=== PATIENT | female | born 1940 | race Caucasian/White ===

== ENCOUNTER 2016-08-16 04:06 | Inpatient (IN) | payer OTHER ==
[~2016-08-16] VITALS: Ht 170.2 cm; Wt 59.9 kg
[~2016-08-16 04:06] MED LIST: ALBUTEROL1.25 MG/3 INH/SOL; AMIODARONE HYD200 MG PO; ANTIVERT 12.512.5 MG PO; ATORVASTATIN CA10 MG PO; BACTRIM DS 8001 TAB PO; BACTRIM DS TAB1 EACH PO; CIPROFLOXACIN250 M2 PO; COUMADIN 3 MG TA3 MG PO; DAILY MULTIPLE1 TAB PO; DOXYCYCLINE MO100 MG PO; FLAG500 PO; LEVOTHYROXIN0.025 M1 PO; LEVOTHYROXINE0.05 M1 PO; LEVOTHYROXINE25 MCG PO; LIDODERM 5% PAT1 PAT EXT; LISINOPRIL2.5 M1 PO; LISINOPRIL2.5 MG PO; LOTRISONE CREAM15 G1 TOP; MAGNESIUM OXID400 MG PO; MECLIZINE HCL25 M1 PO; MELATONIN 3 MG-1 TAB PO; METOPROLOL TART25 M1 PO; MILK OF MAGNESI30 ML PO; MIRALAX17 GM PO; NEURONTIN100 M1 PO; PANTOPRAZOLE SO40 MG PO; ROXICODONE5 MG PO; SAVAYSA PO; Senokot S PO; TRAMADOL50 MG PO; TRIAMCINOLONE A80 GM TOP; VANCOCIN125 MG PO; VIBRAMYCIN 100100 MG PO; VIBRAMYCIN100 MG PO; VICODIN5-300 PO; VITAMIN C500 M3 PO; VITAMIN C500 M7 PO; VITAMIN D31000 UNI1 PO; WARFARIN SODIUM2 MG PO; WARFARIN SODIUM3 MG PO; XARELTO20 M2 PO; ZITHROMAX250 M2 PO; ZOFRAN4 M1 SL; nebulizer machine
--- NOTE | 2016-08-16 11:54 | Operative Report ---
Operative/Inv Procedure Report Surgery Date: 08/16/16 Name of Procedure: 1 open incision and drainage deep to the fashion with exposure of the extensor and flexor tendon and tendon sheath multiple sites right foot 2 open partial third ray resection right foot 3 intraoperative administration of ankle block anesthesia 4 excisional debridement Pre-Operative Diagnosis: 1 open necrotic wound right foot 2 osteomyelitis right foot Post-Operative Diagnosis: The same Estimated Blood Loss: less than 50ml Surgeon/Clay Artisan: SHANNON ESPINOZA DPM Anesthesia: moderate sedation, block Operative/Procedure Note Note: After obtaining informed consent the patient was brought to the operating room and placed on the operating table in the supine position. The patient isn't securely fastened to the operating table utilizing a safety belt. After administration of IV sedation, 10 mL of 0.5% Marcaine plain was infiltrated about the patient's right ankle. Right foot and ankle and screw prepped and draped in usual aseptic manner. Attention directed right foot were large full- thickness chronic was identified. A 15 blade was utilized sharply revised skin margins. The dissection was then carried down deep to the D fashion with exposure of the extensor and flexor tendon and tendon sheath, both proximally and distally. All necrotic nonviable infected tissue sharply evacuated from the wound bed. It 6 was then carried down to the periosteum overlying the distal third ray which is incised reflected. The third digit was disarticulated and passed from the operative field. Bone specimen was sent for both microbiologic and pathologic inspection. Nipple was then irrigated with 3 L normal sterile saline fissure 50,000 units of bacitracin. Following this the foot was redraped and the surgeon's top gloves were changed clean gloves. Any bleeding vessels identified were cauterized or ligated as encountered. Nipple was then packed with iodoform and 3-0 nylon retention sutures were placed followed by 4 x 4's Kerlix and an Mandeep wrap. The patient was noted to tolerate both procedure and anesthesia well and the patient was transported from the operating room to recovery by sent stable.
--- NOTE | 2016-08-16 13:05 | Cons- Medical ---
KUN LLANES 08/16/16 1305: General Information and HPI Consulting Request Date of Consult: 08/16/16 Requested By: SHANNON ESPINOZA DPM Reason for Consult: medical co-management Source of Information: patient, old records Exam Limitations: no limitations History of Present Illness: Patient is 76 year old female with PMH of paroxysmal a fib on xarelton, non metallic prosthetic mitral valve replacement , s/p colostomy bag after a rectal tear, long-standing and worsening complaint of painful hallux limitus and hammertoes is s/p amputation of second toe of right foot after failing conservative therapy ( show modification, immobilization, NSAID tx etc.) Patient is doing well post excisional debridement and open partial third ray resection right foot. Patient was given ankle block anesthesia prior to procedure so denies any current complain. Has tolerated opiods in the past. Patient has been holding her Xarelto since monday for the procedure. Currently she denies any fever, chill,s difficulty breathing, chest pain, headache, dizziness, abdominal pain, leg pain etc. Her colostomy bag is putting out hard brown stools ( patiet states that it keeps alternating with diarrhea). In recovary room her BP was 187/80, pulse 56, Oxygen saturation 97% on room air. She is afebrile to temp of 97.5. Her Echo from 04/22 was significant for; Left ventricular cavity size normal. Left ventricular wall thickness mildly increased. No obvious regional wall motion abnormalities. Left ventricular ejection fraction is estimated at > 55 %. Right ventricle not well visualized, grossly normal. Bioprosthetic mitral valve. Gradient recorded across the prosthetic mitral valve within the expected range. Echo free space anterior to the right ventricle likely represents a fat pad. No pericardial effusion. Allergies/Medications Allergies: Coded Allergies: Penicillins (Intermediate, VERY BAD YEAST INFECTION ALL OVER THE BODY 10/23/15) prednisone (Intermediate, I LOST ALL MY TEETH FROM IT AND HIVES 10/23/15) tiotropium (From SPIRIVA WITH HANDIHALER) (Intermediate, 08/05/16) cephalexin (UNKNOWN 10/23/15) dextromethorphan (From ROBAFEN DM COUGH-CHEST CONGEST) (Intermediate, DIARRHEA 10/23/15) guaifenesin (From ROBAFEN DM COUGH-CHEST CONGEST) (Intermediate, DIARRHEA ) pineapple (Mild, ORAL IRRITATION 10/23/15) Home Med List: Atorvastatin Calcium (Lipitor) 10 MG TABLET 1 TAB PO DAILY CHOLESTEROL ( Reported) Gabapentin (Neurontin) 100 MG CAPSULE 1 CAP PO TID NEUROPATHY (Reported) Levothyroxine Sodium 25 MCG TABLET 1 TAB PO DAILY AC THYROID (Reported) Lisinopril 2.5 MG TABLET 1 TAB PO DAILY HTN (Reported) Metoprolol Tartrate 25 MG TABLET 12.5 MG PO DAILY HEART (Reported) Rivaroxaban (Xarelto) 20 MG TABLET 1 TAB PO DAILY BLOOD THINNER (Reported) with food Current Medications: Current Medications Sig/Adeline Start time Last Medication Dose Route Stop Time Status Admin Acetaminophen 650 MG Q6P PRN 08/16 1315 AC PO Atorvastatin Calcium 10 MG 1700 08/16 1700 AC PO Docusate Sodium 100 MG DAILY NEEDED PRN 08/16 1315 AC PO Gabapentin 100 MG TID 08/16 1600 AC PO Levothyroxine Sodium 0.025 MG DAILY AC 08/17 0700 AC PO Lisinopril 2.5 MG AT BEDTIME 08/16 2200 AC PO Metoprolol Succinate 12.5 MG DAILY 08/17 1000 AC PO Rivaroxaban 20 MG AT BEDTIME 08/16 2200 AC PO Senna/Docusate Sodium 1 TAB DAILY NEEDED PRN 08/16 1330 CAN PO Senna/Docusate Sodium 2 TAB DAILY NEEDED PRN 08/16 1330 AC PO Vancomycin HCl 1,000 MG DAILY 08/17 1000 AC Dextrose/Water 250 ML IV Vancomycin HCl 1,000 MG ONCE 08/16 0000 NR Sodium Chloride 250 ML IV 08/16 2359 Review of Systems Review of Systems Constitutional: Reports: see HPI. 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 Surgical History Surgical History: COLOSTOMY MITRAL VALVE REPLACEMENT Family History Relations & Conditions If Any: MOTHER Bacterial pneumonia Psychosocial History Services at Home: Home Health Aide Exam & Diagnostic Data Last 24 Hrs of Vital Signs/I&O as above Physical Exam General Appearance: well developed/nourished, no apparent distress, alert, awake , hungry Head: atraumatic, normal appearance Respiratory: normal breath sounds, chest non-tender, no respiratory distress Cardiovascular: regular rate/rhythm Gastrointestinal: normal bowel sounds, soft, non-tender Extremities: peripheral pulses intact left side, unpalpable on right side due to bandage and foot edema, right foot wrapped in bandage after being debrided and cleaned Last 24 Hrs of Labs/Roland: as above Assessment/Plan Assessment/Plan Patient is 76 year old female with PMH of paroxysmal a fib on xarelton, non metallic prosthetic mitral valve replacement , s/p colostomy bag after a rectal tear, long-standing and worsening complaint of painful hallux limitus and hammertoes is s/p amputation of second toe of right foot after failing conservative therapy ( show modification, immobilization, NSAID tx etc.) Patient is doing well post excisional debridement and open partial third ray resection right foot. Patient was given ankle block anesthesia prior to procedure so denies any current complain. Has tolerated opiods in the past. Problem list 1. Paroxsymal Atrial fibrillation 2. Right foot wound s/p amputation of second toe 3. Hypertension 4. pain management Assessment and Plan Patient can be started back on diet post procedure and can be given her metoprolol and lisinopril ordered by Dr. diandra Hugo every shift Ok with restarting xarelto today, if patient has to go to OR on monday, will have to hold it back again from tomorrow Continue atorvastatin, gabapentin CBC and BEP in am to get baseline lab work DVT ppx xarelto, if held tomorrow, will have to start patient on IV heprin for a fib Patient is full code Pain management tylenol for mild pain, percocet for moderate pain and 1 mg IV morphine q8prn for severe pain. Patient has tolerated opiods in the past since the patient is still in recovery room, not able to place any orders yet Consult Acknowledgment - Thank you for your consult request. MARIOLA FINLEY MD 08/16/16 8993: Assessment/Plan Consult Acknowledgment - Thank you for your consult request. Attending Review Statement Attending Statement Attending Statement: examined this patient, discuss w/resident/PA/[employer], agreed w/resident/PA/MANAGER [employer], reviewed EMR data (avail), discussed with nursing, reviewed images, amended to note Attending Assessment/Plan: 76 y/o F with PMH sig for paroxysmal a fib on xarelton, non metallic prosthetic mitral valve replacement , s/p colostomy bag after a rectal tear, now s/p open incision and drainage deep to the fashion with exposure of the extensor and flexor tendon and tendon sheath multiple sites right foot, open partial third ray resection right foot, excisional debridement 2/2 to having open necrotic wound right foot, osteomyelitis right foot failing conservative treatment pod # 0. Medicine consulted for medical management of chronic medical issues. Currently denies any pain. I discussed with Dr. Espinoza and he is okay starting the patient back on her anticoagulation. In the recovery room patient's blood pressure was still running high. Other vital signs were stable. on exam; aox3, nad. cv; s1,s2, rrr. resp; clear abd; soft, nt, bs+ ext; no edema. Right foot wrapped in ULYSSES wrap. No labs today. Assessment and recommendations: 76 y/o F with PMH sig for paroxysmal a fib on xarelton, non metallic prosthetic mitral valve replacement , s/p colostomy bag after a rectal tear, now s/p open incision and drainage deep to the fashion with exposure of the extensor and flexor tendon and tendon sheath multiple sites right foot, open partial third ray resection right foot, excisional debridement 2/2 to having open necrotic wound right foot, osteomyelitis right foot failing conservative treatment pod # 0. Medicine consulted for medical management of chronic medical issues. As I mentioned, blood pressure was running high therefore she received labetalol. We will resume all of her hypertensive regimen. Patient be continued on the rest of her medications. Postop care per Dr. Espinoza. Antibiotics per Dr. Espinoza. I checked the Dr. Espinoza and he is okay resuming the patient back on her full dose anticoagulation tonight for atrial fibrillation. Podiatry plans to take patient to or again in the next 2 or 3 days. Therefore keeping that in mind, we'll keep holding her Xarelto and started on IV heparin. We checked a CBC and other labs in the morning. DVT Px; IV heparin.
[2016-08-16 17:40] VITALS: BP 132/64
[2016-08-16 21:23] LABS: PTT 35 SEC (25-37)
[2016-08-16 22:11] LABS: ABSOLUTE BASOPHIL COUNT 0 /CUMM (0.0-0.2); ABSOLUTE EOSINOPHIL COUNT 0.1 /CUMM (0.0-0.7); ABSOLUTE GRANULOCYTE CT 4.1 /CUMM (1.4-6.5); ABSOLUTE LYMPH COUNT 1.8 /CUMM (1.2-3.4); ABSOLUTE MONOCYTE COUNT 0.8 /CUMM (0.10-0.60); BASOPHIL % 0.5 % (0.0-2.0); EOSINOPHIL % 1.5 % (0-5); GRANULOCYTE % 59.3 % (42.2-75.2); HEMATOCRIT 39.5 % (37-47); MEAN CORPUSCULAR HGB 28.6 PG (27.0-31.0); MEAN CORPUSCULAR HGB CONC 32.6 G/DL (33.0-37.0); MEAN CORPUSCULAR VOLUME 87.7 FL (81.0-99.0); MEAN PLATELET VOLUME 9.4 FL (7.4-10.4); PLATELET COUNT 179 /CUMM (130-400); RBC DISTRIBUTION WIDTH 14.6 % (11.5-14.5); RED BLOOD CELL CT 4.51 /CUMM (4.20-5.40); WHITE BLOOD CELL COUNT 6.8 /CUMM (4.8-10.8)
[2016-08-16 23:00] VITALS: BP 132/64
[2016-08-17 05:25] LABS: PTT 110 SEC (25-37)
[2016-08-17 08:00] VITALS: BP 140/70
--- NOTE | 2016-08-17 08:56 | PN- Medicine Consult ---
KUN LLANES 08/17/16 0856: Assessment/Plan Assessment/Plan Assessment: Patient is 76 year old female with PMH of paroxysmal a fib on xarelton, non metallic prosthetic mitral valve replacement , s/p colostomy bag after a rectal tear, long-standing and worsening complaint of painful hallux limitus and hammertoes is s/p amputation of second toe of right foot after failing conservative therapy ( show modification, immobilization, NSAID tx etc.) Patient is doing well post excisional debridement and open partial third ray resection right foot. Patient was given ankle block anesthesia prior to procedure so denies any current complain. Has tolerated opiods in the past. Patient has been holding her Xarelto since monday for the procedure. Currently she denies any fever, chill,s difficulty breathing, chest pain, headache, dizziness, abdominal pain, leg pain etc. Her colostomy bag is putting out hard brown stools ( patiet states that it keeps alternating with diarrhea). In recovary room her BP was 187/80, pulse 56, Oxygen saturation 97% on room air. She is afebrile to temp of 97.5. Her Echo from 04/22 was significant for; Left ventricular cavity size normal. Left ventricular wall thickness mildly increased. No obvious regional wall motion abnormalities. Left ventricular ejection fraction is estimated at > 55 %. Right ventricle not well visualized, grossly normal. Bioprosthetic mitral valve. Gradient recorded across the prosthetic mitral valve within the expected range. Echo free space anterior to the right ventricle likely represents a fat pad. No pericardial effusion. Plan: Patient has right foot second toe amputation and debridement done yesterday, awaiting OR cultures. She is started on vancomycin post procedure, will continue Patient will be continued on heprin drip for paroxysmal a fib as patient has to go to OR again on monday and her xarelto can not be restarted. Continue atorvastatin, gabapentin CBC daily as patient is on heprin drip DVT ppx- patient is on heprin drip Patient is full code Pain management tylenol for mild pain, percocet for moderate pain and 4 mg IV morphine q6prn for severe pain. Patient has tolerated opiods in the past Subjective Subjective: Patient seen and examined. Feels better on increased dose of morphine 4 mg q6, gabapentine dose of 200 mg tid is adjusted. Patient to got to OR again on monday. Objective Last 24 Hrs of Vital Signs/I&O Vital Signs Date Time Temp Pulse Resp B/P Pulse O2 O2 Flow FiO2 Ox Delivery Rate 08/17 0800 98.0 56 20 140/70 95 Room Air 08/16 2300 98.7 55 18 132/64 95 Room Air 08/16 2230 68 132/64 08/16 1740 98.2 55 20 132/64 96 Room Air Intake & Output 08/17 1600 08/17 0800 08/17 0000 Intake Total 510 300 Output Total 600 400 Balance -90 -100 Intake, IV 160 0 Intake, Oral 350 300 Number 0 0 Bowel Movements Output, Urine 600 400 Patient 59.874 kg Weight Physical Exam General Appearance: well developed/nourished, no apparent distress, alert Head: atraumatic, normal appearance Neck: normal inspection, supple Cardiovascular: regular rate/rhythm Respiratory: normal breath sounds, chest non-tender Abdomen: normal bowel sounds, soft, non-tender Extremities: wound covered in bandage, no foul smelling Current Medications: Current Medications Sig/Adeline Start time Last Medication Dose Route Stop Time Status Admin Acetaminophen 650 MG Q6P PRN 08/16 1315 AC PO Atorvastatin Calcium 10 MG 1700 08/16 1700 AC 08/16 PO 2034 Docusate Sodium 100 MG BID PRN 08/16 1445 AC PO Docusate Sodium 100 MG DAILY NEEDED PRN 08/16 1315 DC PO Fentanyl Citrate 100 MCG .STK-MED ONE 08/16 1103 DC IM 08/16 1104 Gabapentin 200 MG TIDAC 08/17 1200 AC PO Gabapentin 300 MG TIDAC 08/17 0800 DC 08/17 PO 0818 Gabapentin 100 MG TID 08/16 1600 DC 08/16 PO 2031 Heparin Sodium 25,000 UNIT Q24H 08/16 1745 AC 08/16 (Porcine) IV 2230 Sodium Chloride 500 ML Labetalol HCl 100 MG .STK-MED ONE 08/16 1353 DC IV 08/16 1354 Levothyroxine Sodium 0.025 MG DAILY AC 08/17 0700 AC 08/17 PO 0525 Lisinopril 2.5 MG AT BEDTIME 08/16 2200 AC 08/16 PO 2230 Metoprolol Succinate 12.5 MG DAILY 08/17 1000 DC PO Metoprolol Tartrate 12.5 MG BID 08/16 2200 AC 08/17 PO 1041 Midazolam HCl 2 MG .STK-MED ONE 08/16 1103 DC IM 08/16 1104 Morphine Sulfate 2 MG ONCE ONE 08/16 2145 DC 08/16 IV 08/16 214 214 Morphine Sulfate 4 MG Q6P PRN 08/16 2145 AC 08/17 IV 0818 Morphine Sulfate 2 MG Q8P PRN 08/16 1800 DC 08/16 IV 2037 Rivaroxaban 20 MG AT BEDTIME 08/16 220 CAN PO Senna/Docusate Sodium 1 TAB DAILY NEEDED PRN 08/16 1330 CAN PO Senna/Docusate Sodium 2 TAB DAILY NEEDED PRN 08/16 1330 AC PO Vancomycin HCl 1,000 MG DAILY 08/17 1000 AC 08/17 Dextrose/Water 250 ML IV 1039 Vancomycin HCl 1,000 MG ONCE 08/16 0000 DC Sodium Chloride 250 ML IV 08/16 2359 Results Last 24 Hrs Lab/Roland Results: Laboratory Tests 08/17/16 0515: Urine Color YEL, Urine Clarity CLEAR, Urine pH 6.5, Ur Specific Marion 1.020, Urine Protein NEG, Urine Ketones NEG, Urine Nitrite NEG, Urine Bilirubin NEG, Urine Urobilinogen 0.2, Ur Leukocyte Esterase NEG, Ur Microscopic SEDIMENT EXAMINED, Urine RBC 1-3, Ur Epithelial Cells FEW, Urine Hemoglobin TRACE-INTACT, Urine Glucose NEG 08/17/16 0430: APTT 110 *H 08/16/160: Anion Gap 12, Estimated GFR > 60, BUN/Creatinine Ratio 21.3, CBC w Diff NO MAN DIFF REQ, RBC 4.51, MCV 87.7, MCH 28.6, RDW 14.6 H, MPV 9.4, Gran % 59.3, Lymphocytes % 26.9, Monocytes % 11.8 H, Eosinophils % 1.5, Basophils % 0.5, Absolute Granulocytes 4.1, Absolute Lymphocytes 1.8, Absolute Monocytes 0.8 H, Absolute Eosinophils 0.1, Absolute Basophils 0, PUBS MCHC 32.6 L 08/16/16 1934: APTT 35 Microbiology 08/16 1143 EXTREMITIE: Gross Specimen Examination - RES 08/16 114 EXTREMITIE: Gram Stain - RES MARIOLA FINLEY MD 08/17/16 1059: Attending MD Review Statement Attending Sign Off Attending Cosign Statement: I have: examined this patient, reviewed aval EMR data, discussd w/resident/PA/ [employer]ICK [employer]ADER, discussed mgmt plan w/micaela, discussed mgmt plan w/pt, agreed w/resident/PA/BRICK GRADER , amended to note. Other Findings: Patient seen and examined, feels okay. She was in a lot of pain last night therefore her morphine dose was increased. Vital signs are stable this morning. Vital Signs Date Time Temp Pulse Resp B/P Pulse O2 O2 Flow FiO2 Ox Delivery Rate 08/17 1041 56 140/70 08/17 0800 98.0 56 20 140/70 95 Room Air 08/16 2300 98.7 55 18 132/64 95 Room Air 08/16 2230 68 132/64 08/16 1740 98.2 55 20 132/64 96 Room Air on exam; aox3, nad. cv; s1,s2, rrr. 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 ext; no edema with right foor wrapped in ULYSSES wrap. Laboratory Tests 08/17 08/17 0515 0430 Coagulation APTT (25 - 37 SEC) 110 *H Urines Urine Color (YEL,AMB,STR) YEL Urine Clarity (CLEAR) CLEAR Urine pH (5.0 - 8.0) 6.5 Ur Specific Marion (1.001 - 1.035) 1.020 Urine Protein (NEG,<30 MG/DL) NEG Urine Ketones (NEG) NEG Urine Nitrite (NEG) NEG Urine Bilirubin (NEG) NEG Urine Urobilinogen (0.1 - 1.0 EU/dl) 0.2 Ur Leukocyte Esterase (NEG) NEG Ur Microscopic SEDIMENT EXAMINED Urine RBC (0 - 5 /HPF) 1-3 Ur Epithelial Cells (NONE,FEW) FEW Urine Hemoglobin (NEG) TRACE-INTACT Urine Glucose (N MG/DL) NEG 08/16 08/16 2120 1934 Chemistry Sodium (137 - 145 mmol/L) 137 Potassium (3.5 - 5.1 mmol/L) 4.2 Chloride (98 - 107 mmol/L) 98 Carbon Dioxide (22 - 30 mmol/L) 27 Anion Gap (5 - 16) 12 BUN (7 - 17 mg/dL) 17 Creatinine (0.5 - 1.0 mg/dL) 0.8 Estimated GFR (>60 ml/min) > 60 BUN/Creatinine Ratio (7 - 25 %) 21.3 Coagulation APTT (25 - 37 SEC) 35 Hematology CBC w Diff NO MAN DIFF REQ WBC (4.8 - 10.8 /CUMM) 6.8 RBC (4.20 - 5.40 /CUMM) 4.51 Hgb (12.0 - 16.0 G/DL) 12.9 Hct (37 - 47 %) 39.5 MCV (81.0 - 99.0 FL) 87.7 MCH (27.0 - 31.0 PG) 28.6 RDW (11.5 - 14.5 %) 14.6 H Plt Count (130 - 400 /CUMM) 179 MPV (7.4 - 10.4 FL) 9.4 Gran % (42.2 - 75.2 %) 59.3 Lymphocytes % (20.5 - 51.1 %) 26.9 Monocytes % (1.7 - 9.3 %) 11.8 H Eosinophils % (0 - 5 %) 1.5 Basophils % (0.0 - 2.0 %) 0.5 Absolute Granulocytes (1.4 - 6.5 /CUMM) 4.1 Absolute Lymphocytes (1.2 - 3.4 /CUMM) 1.8 Absolute Monocytes (0.10 - 0.60 /CUMM) 0.8 H Absolute Eosinophils (0.0 - 0.7 /CUMM) 0.1 Absolute Basophils (0.0 - 0.2 /CUMM) 0 PUBS MCHC (33.0 - 37.0 G/DL) 32.6 L Assessment and recommendations: 76 y/o F with PMH sig for paroxysmal a fib on xarelton, non metallic prosthetic mitral valve replacement , s/p colostomy bag after a rectal tear, now s/p open incision and drainage deep to the fashion with exposure of the extensor and flexor tendon and tendon sheath multiple sites right foot, open partial third ray resection right foot, excisional debridement 2/2 to having open necrotic wound right foot, osteomyelitis right foot failing conservative treatment pod # 1. Medicine consulted for medical management of chronic medical issues. Postoperative per podiatry. Patient's blood pressure stable. She has been resumed back on all of her home independently regimen. 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 Whenever she lays flat it goes back on its own. It is not painful. Patient also takes Xarelto at home for her history of atrial fibrillation. Patient otherwise had as podiatry plans to take her to operating room again in the next 48 hours. She is currently getting IV heparin at a full dose. We'll monitor H&H. Continue current pain regimen. Antibiotics per podiatry.
[2016-08-17 13:54] LABS: PTT 79 SEC (25-37)
[2016-08-17 15:30] VITALS: BP 142/70
--- NOTE | 2016-08-17 17:01 | PN- Podiatry ---
Subjective Subjective: Patient seen at bedside without any new acute complaints. Patient denies nausea vomiting fever chills. Objective Vital Signs and I&Os Vital Signs Date Time Temp Pulse Resp B/P Pulse O2 O2 Flow FiO2 Ox Delivery Rate 08/17 1530 98.1 56 20 142/70 97 Room Air 08/17 1041 56 140/70 08/17 0800 98.0 56 20 140/70 95 Room Air 08/16 2300 98.7 55 18 132/64 95 Room Air 08/16 2230 68 132/64 08/16 1740 98.2 55 20 132/64 96 Room Air Intake & Output 08/17 1600 08/17 0800 08/17 0000 08/16 1600 08/16 0800 08/16 0000 Intake Total 873.6 510 300 Output Total 400 600 400 Balance 473.6 -90 -100 Intake, IV 153.6 160 0 Intake, Oral 720 350 300 Number 0 0 Bowel Movements Output, Stool 0 Output, Urine 400 600 400 Patient 132 lb Weight Assessment/Plan Assessment/Plan Right lower extremity cellulitis with osteomyelitis. Continue IV antibiotics. Follow-up cultures. The patient to the OR Monday for revision and closure. Core Measures/Miscellaneous Venous Thromboembolism VTE Risk Factors: Age > 40, Immobility, paresis, Surgery VTE Contraindications: No Contraindications VTE Prophylaxis Ordered Inpt: Pharm- Heparin VTE Diagnosis: No Beta Ross Is Beta Ross a Home Med? No Antibiotics Is Patient on Antibiotics? Yes If Yes: infection Attending MD Review Statement Attending Statement Attending MD Statement: examined this patient
[2016-08-17 23:00] VITALS: BP 152/68
[2016-08-18 02:01] LABS: PTT 85 SEC (25-37)
--- NOTE | 2016-08-18 07:45 | PN- Medicine Consult ---
KUN LLANES 08/18/16 0744: Assessment/Plan Assessment/Plan Assessment: Patient is 76 year old female with PMH of paroxysmal a fib on xarelton, non metallic prosthetic mitral valve replacement , s/p colostomy bag after a rectal tear, long-standing and worsening complaint of painful hallux limitus and hammertoes is s/p amputation of second toe of right foot after failing conservative therapy ( show modification, immobilization, NSAID tx etc.) Patient is doing well post excisional debridement and open partial third ray resection right foot. Patient was given ankle block anesthesia prior to procedure so denies any current complain. Has tolerated opiods in the past. Patient has been holding her Xarelto since monday for the procedure. Currently she denies any fever, chill,s difficulty breathing, chest pain, headache, dizziness, abdominal pain, leg pain etc. Her colostomy bag is putting out hard brown stools ( patiet states that it keeps alternating with diarrhea). In recovary room her BP was 187/80, pulse 56, Oxygen saturation 97% on room air. She is afebrile to temp of 97.5. Her Echo from 04/22 was significant for; Left ventricular cavity size normal. Left ventricular wall thickness mildly increased. No obvious regional wall motion abnormalities. Left ventricular ejection fraction is estimated at > 55 %. Right ventricle not well visualized, grossly normal. Bioprosthetic mitral valve. Gradient recorded across the prosthetic mitral valve within the expected range. Echo free space anterior to the right ventricle likely represents a fat pad. No pericardial effusion. Plan: Patient has right foot second toe amputation and debridement, awaiting OR cultures. Plan is for a debridement again on 08/19/15 She is continued on vancomycin post procedure Patient will be continued on heprin drip for paroxysmal a fib as patient has to go to OR again on monday and her xarelto can not be restarted. Patients has prolapsed bowel in colostomy bag, she states it is normal and she will put it back in after the bowel movement. Continue atorvastatin, gabapentin CBC daily as patient is on heprin drip DVT ppx- patient is on heprin drip Patient is full code Pain management tylenol for mild pain, percocet for moderate pain and 4 mg IV morphine q6prn for severe pain. Patient has tolerated opiods in the past Subjective Subjective: Patient seen and examined. Feels well. Pain well controlled on current regimen. Her ostomy bag has prolapsed bowel, she says it goes back in when she lays on the bed. She reports too be a little constipated but does not want to try miralax or prune juice. Afebrile, BP stable. Patient to go to OR again tomorrow for debridement by Dr. Gamble. Patient is off classroom monitor Review of Systems Constitutional: Reports: see HPI. Objective Last 24 Hrs of Vital Signs/I&O Vital Signs Date Time Temp Pulse Resp B/P Pulse O2 O2 Flow FiO2 Ox Delivery Rate 08/18 0830 98.1 54 18 148/60 94 Room Air 08/17 2300 97.5 62 18 152/68 96 Room Air 08/17 2200 62 152/68 08/17 2200 62 152/68 08/17 1530 98.1 56 20 142/70 97 Room Air 08/17 1041 56 140/70 Intake & Output 08/18 1600 08/18 0800 08/18 0000 Intake Total 402 502 Output Total 400 500 Balance 2 2 Intake, IV 152 152 Intake, Oral 250 350 Output, Urine 400 500 Physical Exam General Appearance: well developed/nourished, no apparent distress, alert, awake Head: atraumatic, normal appearance Neck: normal inspection Cardiovascular: regular rate/rhythm, edema Respiratory: normal breath sounds, chest non-tender Abdomen: normal bowel sounds, soft, non-tender Extremities: right lower extremety covered in bandage Current Medications: Current Medications Sig/Adeline Start time Last Medication Dose Route Stop Time Status Admin Acetaminophen 650 MG Q6P PRN 08/16 1315 AC PO Atorvastatin Calcium 10 MG 1700 08/16 1700 AC 08/17 PO 1704 Docusate Sodium 100 MG BID PRN 08/16 1445 AC PO Gabapentin 200 MG TIDAC 08/17 1200 AC 08/17 PO 1704 Gabapentin 300 MG TIDAC 08/17 0800 DC 08/17 PO 0818 Heparin Sodium 25,000 UNIT Q24H 08/16 1745 AC 08/18 (Porcine) IV 0629 Sodium Chloride 500 ML Levothyroxine Sodium 0.025 MG DAILY AC 08/17 0700 AC 08/18 PO 0629 Lisinopril 2.5 MG AT BEDTIME 08/16 2200 AC 08/17 PO 2200 Metoprolol Succinate 12.5 MG DAILY 08/17 1000 DC PO Metoprolol Tartrate 12.5 MG BID 08/16 2200 AC 08/17 PO 2200 Morphine Sulfate 4 MG Q6P PRN 08/16 2145 AC 08/18 IV 0633 Senna/Docusate Sodium 2 TAB DAILY NEEDED PRN 08/16 1330 AC PO Vancomycin HCl 1,000 MG DAILY 08/17 1000 AC 08/17 Dextrose/Water 250 ML IV 1039 Results Last 24 Hrs Lab/Roland Results: Laboratory Tests 08/18/16 0605: CBC w Diff NO MAN DIFF REQ, RBC 4.59, MCV 87.1, MCH 28.6, RDW 14.4, MPV 9.5, Gran % 55.7, Lymphocytes % 29.7, Monocytes % 11.5 H, Eosinophils % 2.7, Basophils % 0.4, Absolute Granulocytes 3.3, Absolute Lymphocytes 1.8, Absolute Monocytes 0.7 H, Absolute Eosinophils 0.2, Absolute Basophils 0, PUBS MCHC 32.8 L 08/18/16 0055: APTT 85 H 08/17/16 1223: APTT 79 H TUSHAR COCHRAN,[facility] 08/18/16 1157: Attending MD Review Statement Attending Sign Off Attending Cosign Statement: I have: examined this patient, reviewed [facility] EMR data, personally reviewd images, discussd w/resident/PA/MANAGER BILINGUAL, discussed mgmt plan w/micaela, discussed mgmt plan w/pt, agreed w/resident/PA/MANAGER BILINGUAL, amended to note. Other Findings: Patient seen and examined, still had some pain in the foot. She was also thirsty and was asking for some water. She still has prolapsed bowel in the stoma but that is not painful at all. She says that this is chronic. She is somewhat constipated but does not want to use any stool softeners as this would give her diarrhea. She thinks that by drinking more water she would have a bowel movement. Vital Signs Date Time Temp Pulse Resp B/P Pulse O2 O2 Flow FiO2 Ox Delivery Rate 08/18 0830 98.1 54 18 148/60 94 Room Air 08/17 2300 97.5 62 18 152/68 96 Room Air 08/17 2200 62 152/68 08/17 2200 62 152/68 08/17 1530 98.1 56 20 142/70 97 Room Air on exam; aox3, nad. cv; s1, s2, rrr. resp; clear abd; soft, nt, bs+ + ostomy. ext; no edema , right foot wrapped in kanika wrap. Laboratory Tests 08/18 08/18 08/17 0605 0055 1223 Coagulation APTT (25 - 37 SEC) 85 H 79 H Hematology CBC w Diff NO MAN DIFF REQ WBC (4.8 - 10.8 /CUMM) 6.0 RBC (4.20 - 5.40 /CUMM) 4.59 Hgb (12.0 - 16.0 G/DL) 13.1 Hct (37 - 47 %) 39.9 MCV (81.0 - 99.0 FL) 87.1 MCH (27.0 - 31.0 PG) 28.6 RDW (11.5 - 14.5 %) 14.4 Plt Count (130 - 400 /CUMM) 177 MPV (7.4 - 10.4 FL) 9.5 Gran % (42.2 - 75.2 %) 55.7 Lymphocytes % (20.5 - 51.1 %) 29.7 Monocytes % (1.7 - 9.3 %) 11.5 H Eosinophils % (0 - 5 %) 2.7 Basophils % (0.0 - 2.0 %) 0.4 Absolute Granulocytes (1.4 - 6.5 /CUMM) 3.3 Absolute Lymphocytes (1.2 - 3.4 /CUMM) 1.8 Absolute Monocytes (0.10 - 0.60 /CUMM) 0.7 H Absolute Eosinophils (0.0 - 0.7 /CUMM) 0.2 Absolute Basophils (0.0 - 0.2 /CUMM) 0 PUBS MCHC (33.0 - 37.0 G/DL) 32.8 L Assessment and recommendations: 76 y/o F with PMH sig for paroxysmal a fib on xarelton, non metallic prosthetic mitral valve replacement , s/p colostomy bag after a rectal tear, now s/p open incision and drainage deep to the fashion with exposure of the extensor and flexor tendon and tendon sheath multiple sites right foot, open partial third ray resection right foot, excisional debridement 2/2 to having open necrotic wound right foot, osteomyelitis right foot failing conservative treatment pod # 2. Medicine consulted for medical management of chronic medical issues. Blood pressure stable. Patient currently getting anticoagulation with IV heparin as there is plan to go to or again on Monday as per Dr. Perez. As I mentioned, patient is constipated but does not want to take stool softeners. She thinks that drinking more water will make her have a bowel movement. Continue all current medications. Please keep nothing by mouth after midnight tonight and hold heparin and 6:00 in the morning. Antibiotics per Dr. Perez.
[2016-08-18 07:58] LABS: ABSOLUTE BASOPHIL COUNT 0 /CUMM (0.0-0.2); ABSOLUTE EOSINOPHIL COUNT 0.2 /CUMM (0.0-0.7); ABSOLUTE GRANULOCYTE CT 3.3 /CUMM (1.4-6.5); ABSOLUTE LYMPH COUNT 1.8 /CUMM (1.2-3.4); ABSOLUTE MONOCYTE COUNT 0.7 /CUMM (0.10-0.60); BASOPHIL % 0.4 % (0.0-2.0); EOSINOPHIL % 2.7 % (0-5); GRANULOCYTE % 55.7 % (42.2-75.2); HEMATOCRIT 39.9 % (37-47); MEAN CORPUSCULAR HGB 28.6 PG (27.0-31.0); MEAN CORPUSCULAR HGB CONC 32.8 G/DL (33.0-37.0); MEAN CORPUSCULAR VOLUME 87.1 FL (81.0-99.0); MEAN PLATELET VOLUME 9.5 FL (7.4-10.4); PLATELET COUNT 177 /CUMM (130-400); RBC DISTRIBUTION WIDTH 14.4 % (11.5-14.5); RED BLOOD CELL CT 4.59 /CUMM (4.20-5.40)
[2016-08-18 08:30] VITALS: BP 148/60
[2016-08-18 16:09] LABS: PTT 87 SEC (25-37)
[2016-08-18 16:24] VITALS: BP 108/70
--- NOTE | 2016-08-18 17:23 | PN- Podiatry ---
Subjective Subjective: Patient seen at bedside without any new acute complaints. Patient denies nausea vomiting fever chills. Objective Vital Signs and I&Os Vital Signs Date Time Temp Pulse Resp B/P Pulse O2 O2 Flow FiO2 Ox Delivery Rate 08/18 1624 98.1 60 18 108/70 95 Room Air 08/18 0830 98.1 54 18 148/60 94 Room Air 08/17 2300 97.5 62 18 152/68 96 Room Air 08/17 2200 62 152/68 08/17 2200 62 152/68 Intake & Output 08/18 1600 08/18 0800 08/18 0000 08/17 1600 08/17 0800 08/17 0000 Intake Total 884 402 502 873.6 510 300 Output Total 825 400 500 400 600 400 Balance 59 2 2 473.6 -90 -100 Intake, IV 404 152 152 153.6 160 0 Intake, Oral 480 250 350 720 350 300 Number 0 0 Bowel Movements Output, Stool 0 Output, Urine 825 400 500 400 600 400 Patient 132 lb 132 lb Weight Physical Exam: Dressing to foot clean dry and intact. No pain with deep palpation bilateral lower extremity's. Assessment/Plan Assessment/Plan Cellulitis right lower extremity with underlying osteomyelitis. Patient to the OR tomorrow for revision and closure of open wound. Discharge planning for Monday. Core Measures/Miscellaneous Venous Thromboembolism VTE Risk Factors: Age > 40, Immobility, paresis, Surgery VTE Contraindications: No Contraindications VTE Prophylaxis Ordered Inpt: Pharm- Heparin VTE Diagnosis: No Beta Ross Is Beta Ross a Home Med? No Antibiotics Is Patient on Antibiotics? Yes If Yes: infection Attending MD Review Statement Attending Statement Attending MD Statement: examined this patient
[2016-08-19 00:08] VITALS: BP 140/56
[2016-08-19 03:55] LABS: PTT 92 SEC (25-37)
[2016-08-19 08:05] VITALS: BP 130/60
--- NOTE | 2016-08-19 09:34 | PN- Medicine Consult ---
KUN LLANES 08/19/16 0934: Assessment/Plan Assessment/Plan Assessment: Patient is 76 year old female with PMH of paroxysmal a fib on xarelton, non metallic prosthetic mitral valve replacement , s/p colostomy bag after a rectal tear, long-standing and worsening complaint of painful hallux limitus and hammertoes is s/p amputation of second toe of right foot after failing conservative therapy ( show modification, immobilization, NSAID tx etc.) Patient is doing well post excisional debridement and open partial third ray resection right foot. Patient was given ankle block anesthesia prior to procedure so denies any current complain. Has tolerated opiods in the past. Patient has been holding her Xarelto since monday for the procedure. Currently she denies any fever, chill,s difficulty breathing, chest pain, headache, dizziness, abdominal pain, leg pain etc. Her colostomy bag is putting out hard brown stools ( patiet states that it keeps alternating with diarrhea). In recovary room her BP was 187/80, pulse 56, Oxygen saturation 97% on room air. She is afebrile to temp of 97.5. Her Echo from 04/22 was significant for; Left ventricular cavity size normal. Left ventricular wall thickness mildly increased. No obvious regional wall motion abnormalities. Left ventricular ejection fraction is estimated at > 55 %. Right ventricle not well visualized, grossly normal. Bioprosthetic mitral valve. Gradient recorded across the prosthetic mitral valve within the expected range. Echo free space anterior to the right ventricle likely represents a fat pad. No pericardial effusion. Plan: Patient has right foot second toe amputation and debridement, awaiting OR cultures. Plan is for a debridement again on 08/19/15 She is continued on vancomycin post procedure Patient will be continued on heprin drip for paroxysmal a fib, heprin drip held at 6 am, should be continued post procedure of dr. beti ye. Patients has prolapsed bowel in colostomy bag, she states it is normal Patient remains bradycardiac, her metoprolol is decreased to 6.25 bid from 12.5 bid and lisinopril increased to 5 mg daily fom 2.5 mg daily Continue atorvastatin, gabapentin CBC daily as patient is on heprin drip DVT ppx- patient is on heprin drip Patient is full code Pain management tylenol for mild pain, percocet for moderate pain and 4 mg IV morphine q6prn for severe pain. Patient has tolerated opiods in the past Subjective Subjective: Patient seen and examined. Feels well. No new complains. WIll be taken to OR by DR. Gamble for debridement today Review of Systems Constitutional: Reports: see HPI. Objective Last 24 Hrs of Vital Signs/I&O Vital Signs Date Time Temp Pulse Resp B/P Pulse O2 O2 Flow FiO2 Ox Delivery Rate 08/19 1003 57 130/60 08/19 0834 Room Air 08/19 0805 97.9 52 18 130/60 96 Room Air 08/19 0008 97.9 56 18 140/56 97 Room Air 08/18 2116 64 140/58 08/18 2116 64 140/58 08/18 1624 98.1 60 18 108/70 95 Room Air Intake & Output 08/19 1600 08/19 0800 08/19 0000 Intake Total 353.4 594 Output Total 600 800 Balance -246.6 -206 Intake, IV 153.4 154 Intake, Oral 200 440 Output, Stool 0 Output, Urine 600 800 Physical Exam General Appearance: well developed/nourished, no apparent distress, alert, awake , comfortable Head: atraumatic Cardiovascular: regular rate/rhythm Respiratory: normal breath sounds, chest non-tender, no respiratory distress Abdomen: normal bowel sounds, soft, non-tender, colostomy bag in place Current Medications: Current Medications Sig/Adeline Start time Last Medication Dose Route Stop Time Status Admin Acetaminophen 650 MG Q6P PRN 08/16 1315 AC PO Atorvastatin Calcium 10 MG 1700 08/16 1700 AC 08/18 PO 1700 Docusate Sodium 100 MG BID PRN 08/16 1445 AC PO Gabapentin 200 MG TIDAC 08/17 1200 AC 08/18 PO 1700 Heparin Sodium 25,000 UNIT Q24H 08/16 1745 DC 08/18 (Porcine) IV 1701 Sodium Chloride 500 ML Levothyroxine Sodium 0.025 MG DAILY AC 08/17 0700 AC 08/18 PO 0629 Lisinopril 5 MG AT BEDTIME 08/190 AC PO Lisinopril 2.5 MG AT BEDTIME 08/16 2200 DC 08/18 PO 211 Metoprolol Tartrate 6.25 MG BID 08/19 1000 AC 08/19 PO 1003 Metoprolol Tartrate 12.5 MG BID 08/16 2199 DC 08/18 PO 211 Morphine Sulfate 4 MG Q6P PRN 08/16 2145 AC 08/19 IV 0228 Senna/Docusate Sodium 2 TAB DAILY NEEDED PRN 08/16 1330 AC 08/18 PO 2117 Vancomycin HCl 1,000 MG DAILY 08/17 1000 AC 08/19 Dextrose/Water 250 ML IV 0958 Results Last 24 Hrs Lab/Roland Results: Laboratory Tests 08/19/16 1020: CBC w Diff NO MAN DIFF REQ, RBC 4.89, MCV 87.5, MCH 28.6, RDW 14.5, MPV 8.6, Gran % 59.5, Lymphocytes % 26.0, Monocytes % 10.8 H, Eosinophils % 3.4, Basophils % 0.3, Absolute Granulocytes 3.4, Absolute Lymphocytes 1.5, Absolute Monocytes 0.6, Absolute Eosinophils 0.2, Absolute Basophils 0, PUBS MCHC 32.6 L 08/19/16 0315: APTT 92 H 08/18/16 1510: APTT 87 H TUSHAR COCHRAN,[facility] 08/19/16 1127: Attending MD Review Statement Attending Sign Off Attending Cosign Statement: I have: examined this patient, reviewed [facility] EMR data, discussd w/resident/PA/ ANIMAL HANDLER, discussed mgmt plan w/micaela, discussed mgmt plan w/pt, agreed w/resident/PA/ANIMAL HANDLER , amended to note. Other Findings: Patient seen and examined, offers no complaints. She is awaiting to go back to operating room today with Dr. Perez for the revision and closure of open wound. Vital Signs Date Time Temp Pulse Resp B/P Pulse O2 O2 Flow FiO2 Ox Delivery Rate 08/19 1003 57 130/60 08/19 0834 Room Air 08/19 0805 97.9 52 18 130/60 96 Room Air 08/19 0008 97.9 56 18 140/56 97 Room Air 08/18 2116 64 140/58 08/18 2116 64 140/58 08/18 1624 98.1 60 18 108/70 95 Room Air on exam: aox3, nad. cv; s1,s2, rrr resp; clear abd; soft, nt, bs+ ext; no edema. Laboratory Tests 08/19 08/19 08/18 1020 0315 1510 Coagulation APTT (25 - 37 SEC) 92 H 87 H Hematology CBC w Diff NO MAN DIFF REQ WBC (4.8 - 10.8 /CUMM) 5.8 RBC (4.20 - 5.40 /CUMM) 4.89 Hgb (12.0 - 16.0 G/DL) 13.9 Hct (37 - 47 %) 42.8 MCV (81.0 - 99.0 FL) 87.5 MCH (27.0 - 31.0 PG) 28.6 RDW (11.5 - 14.5 %) 14.5 Plt Count (130 - 400 /CUMM) 179 MPV (7.4 - 10.4 FL) 8.6 Gran % (42.2 - 75.2 %) 59.5 Lymphocytes % (20.5 - 51.1 %) 26.0 Monocytes % (1.7 - 9.3 %) 10.8 H Eosinophils % (0 - 5 %) 3.4 Basophils % (0.0 - 2.0 %) 0.3 Absolute Granulocytes (1.4 - 6.5 /CUMM) 3.4 Absolute Lymphocytes (1.2 - 3.4 /CUMM) 1.5 Absolute Monocytes (0.10 - 0.60 /CUMM) 0.6 Absolute Eosinophils (0.0 - 0.7 /CUMM) 0.2 Absolute Basophils (0.0 - 0.2 /CUMM) 0 PUBS MCHC (33.0 - 37.0 G/DL) 32.6 L Assessment and recommendations: 76 y/o F with PMH sig for paroxysmal a fib on xarelton, non metallic prosthetic mitral valve replacement , s/p colostomy bag after a rectal tear, now s/p open incision and drainage deep to the fashion with exposure of the extensor and flexor tendon and tendon sheath multiple sites right foot, open partial third ray resection right foot, excisional debridement 2/2 to having open necrotic wound right foot, osteomyelitis right foot failing conservative treatment pod # 3. Medicine consulted for medical management of chronic medical issues. Patient going to again today with Dr. Perez for the revision and closure of open wound. Antibiotics per Dr. Perez. Heparin drip was held this morning. Preceptor Dr. Perez if Xarelto can be resumed tonight after the procedure. Agree with decreasing the dose of beta israel slightly and increasing the dose of lisinopril for the blood pressure. Patient was slightly bradycardic. Continue the rest of the medications. Thank you very much will follow along with you.
[2016-08-19 10:36] LABS: ABSOLUTE BASOPHIL COUNT 0 /CUMM (0.0-0.2); ABSOLUTE EOSINOPHIL COUNT 0.2 /CUMM (0.0-0.7); ABSOLUTE GRANULOCYTE CT 3.4 /CUMM (1.4-6.5); ABSOLUTE LYMPH COUNT 1.5 /CUMM (1.2-3.4); ABSOLUTE MONOCYTE COUNT 0.6 /CUMM (0.10-0.60); BASOPHIL % 0.3 % (0.0-2.0); EOSINOPHIL % 3.4 % (0-5); GRANULOCYTE % 59.5 % (42.2-75.2); HEMATOCRIT 42.8 % (37-47); MEAN CORPUSCULAR HGB 28.6 PG (27.0-31.0); MEAN CORPUSCULAR HGB CONC 32.6 G/DL (33.0-37.0); MEAN CORPUSCULAR VOLUME 87.5 FL (81.0-99.0); MEAN PLATELET VOLUME 8.6 FL (7.4-10.4); PLATELET COUNT 179 /CUMM (130-400); RBC DISTRIBUTION WIDTH 14.5 % (11.5-14.5); RED BLOOD CELL CT 4.89 /CUMM (4.20-5.40); WHITE BLOOD CELL COUNT 5.8 /CUMM (4.8-10.8)
--- NOTE | 2016-08-19 13:31 | Operative Report ---
Operative/Inv Procedure Report Surgery Date: 08/19/16 Name of Procedure: 1 open incision and drainage deep to the D fashion with exposure of the extensor tendon and tendon sheath multiple sites right foot 2 delayed primary closure of open surgical wound with local random advancement flap 3 intraoperative administration of ankle block anesthesia 4 excisional debridement Pre-Operative Diagnosis: 1 open infected wound right foot 2 osteomyelitis right foot Post-Operative Diagnosis: The same Estimated Blood Loss: less than 50ml Surgeon/Director Of Recruiting: SHANNON ESPINOZA DPM Anesthesia: moderate sedation, block Operative/Procedure Note Note: After obtaining informed consent the patient was brought to the operating room and placed on the operating table in the supine position. The patient was then securely fastened to the operating table utilizing safety belt. After administration of IV sedation, 10 mL of 0.5% Marcaine plain was infiltrated about the patient's right ankle. The right foot and ankle then scrubbed prepped and draped in usual aseptic manner. Attention directed the right foot, where a large full-thickness chronic was identified. A 15 blade visualized sharply revised skin margins. The dissection was then carried down deep to the D fashion with exposure of the extensor tendon and tendon sheath multiple sites right foot. All necrotic nonviable infected tissue sharply evacuated from the wound bed. Nipple was then irrigated with 3 L of normal sterile saline fissure 50,000 units of bacitracin. Following this the foot was redraped and the surgeon's top gloves were changed clean gloves. Any bleeding vessels identified were cauterized or ligated as encountered. A dorsomedial and dorsal lateral flap was then developed with undermining, mobilization and advancement of the adjacent tissue towards the central portion of the wound. The deep side of the flap was held centrally with 3-0 Vicryl and the skin edges were reapproximated with 3-0 nylon. The incision was then dressed with Xeroform 4 x 4's Kerlix and an Mandeep wrap. The patient was noted to tolerate both procedure and anesthesia well and the patient was transported from the operating room to recovery with vital signs stable and fascia status intact to both the dorsal medial dorsal lateral flaps.
[2016-08-19 15:52] VITALS: BP 128/64
[2016-08-19 23:00] VITALS: BP 126/72
[2016-08-20 08:12] VITALS: BP 124/58
--- NOTE | 2016-08-20 12:39 | PN- Podiatry ---
Subjective Subjective: Patient seen at bedside with no acute complaints. Patient denies nausea vomiting fever chills. Patient did admit to some right foot pain overnight which was managed with by mouth analgesics. Objective Vital Signs and I&Os Vital Signs Date Time Temp Pulse Resp B/P Pulse O2 O2 Flow FiO2 Ox Delivery Rate 08/20 0935 60 124/58 08/20 0812 98.3 60 18 124/58 95 Room Air 08/19 2300 97.4 62 18 126/72 96 Room Air 08/19 2232 62 126/72 08/19 2232 62 126/72 08/19 1552 97.8 60 18 128/64 98 Room Air Intake & Output 08/20 1600 08/20 0800 08/20 0000 08/19 1600 08/19 0800 08/19 0000 Intake Total 100 560 720 353.4 594 Output Total 350 600 500 600 800 Balance -250 -40 220 -246.6 -206 Intake, IV 0 10 153.4 154 Intake, Oral 100 550 720 200 440 Number 0 1 0 Bowel Movements Output, Stool 0 Output, Urine 350 600 500 600 800 Physical Exam: Dressing right foot clean dry and intact. Minimal strike through identified to plantar lateral foot. No pain with deep palpation bilateral lower extremity's. Assessment/Plan Assessment/Plan Cellulitis and ostium myelitis right lower extremity. Continue IV Vanco while admitted. Discharge planning pending placement by case management. Core Measures/Miscellaneous Venous Thromboembolism VTE Risk Factors: Age > 40, Immobility, paresis, Surgery VTE Contraindications: No Contraindications VTE Prophylaxis Ordered Inpt: Pharm- Heparin VTE Diagnosis: No Beta Ross Is Beta Ross a Home Med? No Antibiotics Is Patient on Antibiotics? Yes If Yes: infection Attending MD Review Statement Attending Statement Attending MD Statement: examined this patient
--- NOTE | 2016-08-20 13:57 | PN- Att Addend ---
Attending Addendum Attending Brief Note Patient seen and examined, feels well. Offers no complaints. She is status post washout and closure of the wound yesterday. Vital Signs Date Time Temp Pulse Resp B/P Pulse O2 O2 Flow FiO2 Ox Delivery Rate 08/20 0935 60 124/58 08/20 0812 98.3 60 18 124/58 95 Room Air 08/19 2300 97.4 62 18 126/72 96 Room Air 08/19 2232 62 126/72 08/19 2232 62 126/72 08/19 1552 97.8 60 18 128/64 98 Room Air ON EXAM; AOX3, NAD. CV; S1, S2, RRR. RESP; CLEAR ABD; SOFT, NT, BS+ + COLOSTOMY. EXT; NO EDEMA. + ULYSSES WRAP ON RIGHT FOOT. no labs today. A/P; 76 y/o F with PMH sig for paroxysmal a fib on xarelton, non metallic prosthetic mitral valve replacement , s/p colostomy bag after a rectal tear, now s/p open incision and drainage deep to the fashion with exposure of the extensor and flexor tendon and tendon sheath multiple sites right foot, open partial third ray resection right foot, excisional debridement 2/2 to having open necrotic wound right foot, osteomyelitis right foot failing conservative treatment. Went o OR again yesterday for the washout, wound closure. Xarelto was resumed yesterday. Blood pressure and heart rate remained stable with a changed regimen. Continue all current meds. Patient is medically stable for discharge whenever she is ready from podiatry standpoint
[2016-08-20 16:00] VITALS: BP 116/62
[2016-08-20 22:08] VITALS: BP 110/50
[2016-08-21 08:13] VITALS: BP 112/60
--- NOTE | 2016-08-21 10:32 | Surgical Discharge Summary ---
Visit Information Visit Dates Admission Date: 08/16/16 Discharge Date: 08/21/16 History of Present Illness Chief Complaint: Heather is a 76-year-old female with a history of a long-standing nonhealing ulceration to the third digit right foot. Unfortunately, the patient developed an underlying osteomyelitis requiring surgical resection and IV antibiotics. The patient was admitted for this treatment. 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 Home Who Do You Live With? Patient/Self Services at Home: Home Health Aide What is Your Primary Language? Spanish Review of Systems: Unremarkable except for that noted in history present illness Hospital Course Course Attending Physician: SHANNON ESPINOZA DPM Primary Care Physician: LAMONT REARDON MD Hospital Course: Heather was admitted after a partial third ray resection right foot for IV antibiotics. The patient was noted tolerate both her procedures and anesthesia well. The patient remained stable and afebrile during the course of her admission. Allergies: Coded Allergies: Penicillins (Intermediate, VERY BAD YEAST INFECTION ALL OVER THE BODY 10/23/15) prednisone (Intermediate, I LOST ALL MY TEETH FROM IT AND HIVES 10/23/15) tiotropium (From SPIRIVA WITH HANDIHALER) (Intermediate, 08/05/16) cephalexin (UNKNOWN 10/23/15) dextromethorphan (From ROBAFEN DM COUGH-CHEST CONGEST) (Intermediate, DIARRHEA 10/23/15) guaifenesin (From ROBAFEN DM COUGH-CHEST CONGEST) (Intermediate, DIARRHEA ) pineapple (Mild, ORAL IRRITATION 10/23/15) Disposition Summary Disposition Principal Diagnosis: Right foot osteomyelitis Additional Diagnosis: Right lower extremity cellulitis Discharge Disposition: SNF Discharge Instructions General Discharge Information Code Status: Full Code Patient's Diet: Heart healthy Patient's Activity: Patient is to ambulate in surgical shoe with heel touch right foot Follow-Up Instructions/Appts: Follow-up with Dr. Espinoza in the wound care center within one week of discharge. Medications at Discharge Discharge Medications: Continue taking these medications: Atorvastatin Calcium (Lipitor) 10 MG TABLET 1 Tablet ORAL DAILY Comments: PER [facility] Metoprolol Tartrate (Metoprolol Tartrate) 25 MG TABLET 12.5 Milligram ORAL DAILY Comments: Last Taken: 08/21/16 Time: 10 AM Gabapentin (Neurontin) 100 MG CAPSULE 1 Capsule ORAL THREE TIMES DAILY Comments: Last Taken: 08/21/16 Time: Levothyroxine Sodium (Levothyroxine Sodium) 25 MCG TABLET 1 Tablet ORAL DAILY BEFORE BREAKFAST Qty = 30 Comments: Last Taken: 08/21/16 Time: 6:30 AM Rivaroxaban (Xarelto) 20 MG TABLET 1 Tablet ORAL DAILY Instructions: with food Comments: Last Taken: 08/20/16 Time: 10 PM Lisinopril (Lisinopril) 2.5 MG TABLET 1 Tablet ORAL DAILY Qty = 90 Comments: Last Taken: 08/20/16 Time: 10 PM Attending MD Review Statement Attending Statement Attending MD Statement: examined this patient
[2016-08-21 11:02] VITALS: BP 112/60
--- NOTE | 2016-08-21 12:16 | PN- Att Addend ---
Attending Addendum Attending Brief Note Patient seen and examined, offers no complaints. Had some pain in the foot earlier which helped with morphine. Vital Signs Date Time Temp Pulse Resp B/P Pulse O2 O2 Flow FiO2 Ox Delivery Rate 08/21 1102 97.5 55 18 112/60 08/21 0949 55 112/60 08/21 0813 97.5 55 18 112/60 97 Room Air 08/20 2208 98.0 59 18 110/50 94 Room Air 08/20 2153 68 126/70 08/20 2153 68 126/70 08/20 1600 98.3 56 18 116/62 96 Room Air ON EXAM; AOX3, NAD. CV; S1, S2, RRR. RESP; CLEAR ABD; SOFT, NT, BS+ + COLOSTOMY. EXT; NO EDEMA. + ULYSSES WRAP ON RIGHT FOOT. no labs today. A/P; 76 y/o F with PMH sig for paroxysmal a fib on xarelton, non metallic prosthetic mitral valve replacement , s/p colostomy bag after a rectal tear, now s/p open incision and drainage deep to the fashion with exposure of the extensor and flexor tendon and tendon sheath multiple sites right foot, open partial third ray resection right foot, excisional debridement 2/2 to having open necrotic wound right foot, osteomyelitis right foot failing conservative treatment. Went o OR again yesterday for the washout, wound closure. Xarelto was resumed. Blood pressure and heart rate remained stable with a changed regimen. Patient medically stable for discharge today.
--- NOTE | 2016-10-01 16:40 | History & Physical ---
General Information and HPI History of Present Illness: Heather is a 76-year-old female with a long-standing and worsening complaint of painful hallux limitus and hammertoes right foot. Patient has undergone an extended course of conservative care, including shoe gear and activity modification, rest, immobilization and courses of NSAIDs. None of this is yielded her any significant relief. The patient presents today for preoperative surgical consultation. Allergies/Medications Allergies: Coded Allergies: Penicillins (Intermediate, VERY BAD YEAST INFECTION ALL OVER THE BODY 10/23/15) prednisone (Intermediate, I LOST ALL MY TEETH FROM IT AND HIVES 10/23/15) tiotropium (From SPIRIVA WITH HANDIHALER) (Intermediate, 08/05/16) cephalexin (UNKNOWN 10/23/15) dextromethorphan (From ROBAFEN DM COUGH-CHEST CONGEST) (Intermediate, DIARRHEA 10/23/15) guaifenesin (From ROBAFEN DM COUGH-CHEST CONGEST) (Intermediate, DIARRHEA ) pineapple (Mild, ORAL IRRITATION 10/23/15) Home Med list Atorvastatin Calcium (Lipitor) 10 MG TABLET 1 TAB PO DAILY CHOLESTEROL ( Reported) Gabapentin (Neurontin) 100 MG CAP 200 MG PO TID NEUROPATHY (Reported) Levothyroxine Sodium 25 MCG TABLET 1 TAB PO DAILY AC THYROID (Reported) Lisinopril 2.5 MG TABLET 1 TAB PO DAILY HTN (Reported) Metoprolol Tartrate (Lopressor) 25 MG TABLET 0.5 TAB PO BID HEART (Reported) Rivaroxaban (Xarelto) 20 MG TABLET 1 TAB PO DAILY BLOOD THINNER (Reported) with food Past History Medical History Neurological: vertigo EENT: sinusitis Cardiovascular: hypertension, hyperlipidemia, MITRAL VALVE REPLACEMENT Respiratory: pneumonia Gastrointestinal: TEAR IN RETUM,COLOSTOMY C DIFF Hepatic: NONE Renal: NONE Musculoskeletal: NONE Psychiatric: NONE Endocrine: hypothyroidism Blood Disorders: NONE Cancer(s): 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 Heart sounds rate and rhythm regular. Lower extremity physical exam demonstrates intact pedal pulses bilaterally. Pulses dorsalis pedis and posterior tibial arteries are palpable bilaterally. Patient without any sensory or motor deficits. Deep tendon reflexes grossly intact. Patient noted to have significant pain with palpation or range of motion through the right first metatarsophalangeal joint. There is also pain noted with dorsal palpation to the proximal interphalangeal joints of the second third digits right foot. Assessment/Plan Assessment/Plan: Hallux rigidus and painful hammertoes right foot. A lengthy discussion reviewing both surgical and conservative options was held the patient at bedside and the patient elects to go forward surgery despite the risks. As Ranked By This Provider Problem List: 1. 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 <Electronically signed by SHANNON ESPINOZA DPM> 08/09/16 07
== END 2016-08-21 13:00 | DRG 464 ==
LOC: STS 04:06 → 1NO 16:43
PROVIDERS: Internal Medicine; Internal Medicine Hematology & Oncology; ADMIT Podiatrist Foot & Ankle Surgery
PROC: 0Y6T0Z3 Detachment at Right 3rd Toe, Low, Open Approach (ICD-10-PCS; principal; 2016-08-16)
PROC: 0JBQ0ZZ Excision of Right Foot Subcutaneous Tissue and Fascia, Open Approach (ICD-10-PCS; 2016-08-19)
PROC: 0HXMXZZ Transfer Right Foot Skin, External Approach (ICD-10-PCS; 2016-08-19)
DX: M86.8X7 Other osteomyelitis, ankle and foot (principal); L03.115 Cellulitis of right lower limb; I48.91 Unspecified atrial fibrillation; L97.513 Non-pressure chronic ulcer of other part of right foot with necrosis of muscle; I10 Essential (primary) hypertension; Z79.01 Long term (current) use of anticoagulants; Z95.2 Presence of prosthetic heart valve; Z93.3 Colostomy status
CPT/HCPCS: 1NP; 87070; 87075; 36415; 81001; 82436; 88305; J1644; J2001; J2270; J3370; J3490; J7040; J7060